=== PATIENT | female | born 1945 | race Caucasian/White ===

== ENCOUNTER 2017-01-12 10:16 | Outpatient (CLI) | payer MEDICARE ==
--- NOTE | 2017-01-13 16:28 | Mammography Report ---
DIGITAL SCREENING MAMMOGRAM: 01/12/2017 CLINICAL INDICATION: A 71-year-old, for screening. COMPARISON: 11/2013, 08/2008, 03/2007. TECHNIQUE: Routine CC and MLO projections were obtained of the breasts. Bilateral laterally exaggera reg craniocaudal views. FINDINGS: The breasts again demonstrate heterogeneously dense fibroglandular parenchyma bilaterally. Coarse and punctate, typically benign calcifications are present. No suspicious masses, clustered mi crocalcifications, or regions of architectural distortion are identified. IMPRESSION: BENIGN FINDINGS. RECOMMENDATION: ROUTINE ANNUAL SCREENING UNLESS OTHERWISE CLINICALLY INDICATED. BIRADS CATEGORY 2-BENIGN FINDINGS. STANDARD QUALIFYING STATEMENTS 1. This examination was reviewed with the aid of Computer-Aided Detection (CAD). 2. A negative or benign imaging report should not delay biopsy if clinically suspicious findings are present. Consider surgical consultation if warranted. More than 5% of cancers are not identified by i maging. 3. Dense breasts may obscure an underlying neoplasm. JOB #: [id number] EXT JOB #:[id number]
== END 2017-01-12 10:17 | disposition home or self-care (01) ==
LOC: DI.S 10:16
PROVIDERS: ATTEND Registered Nurse
DX: Z12.31 Encounter for screening mammogram for malignant neoplasm of breast (principal)
CPT/HCPCS: 77067

== ENCOUNTER 2017-02-19 11:42 | Outpatient (CLI) | payer MEDICARE ==
--- NOTE | 2017-02-19 12:20 | XRAY Report ---
TWO-VIEW CHEST: 02/19/2017 CLINICAL INDICATION: Cough, dyspnea, COPD. COMPARISON: 09/05/2014 FINDINGS: Frontal and lateral views of the chest demonstrate a normal cardiac silhouette. The lungs are hyperinflated. Postoperative changes in the left upper lobe are stable. No new consolidation, effusion, or pneumothorax is evident. IMPRESSION: STABLE COPD AND POSTOPERATIVE CHANGES. NO SIGNIFICANT INTERVAL CHANGE. JOB #: [id number] EXT JOB #:[id number]
== END 2017-02-19 11:43 | disposition home or self-care (01) ==
LOC: DI 11:42
PROVIDERS: ATTEND Registered Nurse
DX: J44.9 Chronic obstructive pulmonary disease, unspecified (principal)
CPT/HCPCS: 71020

== ENCOUNTER 2018-10-10 10:17 | Day surgery (SDC) | payer MEDICARE ==
[2018-10-10] MEDS ORDERED: LACTATED RINGERS 1,000 ML IV ONE (10:37)
[2018-10-10] MEDS ORDERED: MIDAZOLAM 2 MG/2 ML VIAL IVP ONE (10:38)
[2018-10-10] MEDS ORDERED: fentaNYL 100 MCG/2 ML VIAL IVP ONE (10:38)
[2018-10-10 11:39] VITALS: BP 137/81
== END 2018-10-10 10:18 | disposition home or self-care (01) ==
LOC: SDS 10:17
PROVIDERS: ATTEND Surgery
PROC: 0DJD8ZZ Inspection of Lower Intestinal Tract, Via Natural or Artificial Opening Endoscopic (ICD-10-PCS; principal; 2018-10-10 11:30)
DX: Z12.11 Encounter for screening for malignant neoplasm of colon (principal); K64.8 Other hemorrhoids; Z86.010 Personal history of colon polyps; J43.9 Emphysema, unspecified; F17.210 Nicotine dependence, cigarettes, uncomplicated
CPT/HCPCS: G0105; J7120

== ENCOUNTER 2018-11-24 09:21 | Outpatient (CLI) | payer MEDICARE ==
[2018-11-24] MEDS ORDERED: ALBUTEROL NEB 2.5 MG/3 ML INH SCH (10:13)
== END 2018-11-24 09:22 | disposition home or self-care (01) ==
LOC: RT 09:21
PROVIDERS: ATTEND Registered Nurse
DX: J44.9 Chronic obstructive pulmonary disease, unspecified (principal)
CPT/HCPCS: 94060

== ENCOUNTER 2021-07-24 11:17 | Outpatient (CLI) | payer MEDICARE ==
[2021-07-24] MEDS ORDERED: IOVERSOL 320 100 ML VIAL IVP ONE ×2 (11:40→13:35)
[2021-07-24] MEDS ORDERED: IOPAMIDOL-300 50 ML VIAL ONE (11:40)
[2021-07-24] MEDS ORDERED: IOPAMIDOL-300 50 ML VIAL PO ONE (13:36)
--- NOTE | 2021-07-24 16:51 | CT Report ---
PROCEDURE: Abdomen/Pelvis W INDICATIONS: ALTERED BOWEL FUNCTION CONTRAST: IV CONTRAST: Optiray 320 ml: 100 PO CONTRAST: Isovue 300 ml50 TECHNIQUE: After the administration of IV and oral contrast, 5 mm thick sections acquired from the diaphragms to the symphysis. 5 mm thick coronal and sagittal reformats were acquired. For radiation dose reducti on, the following was used: automated exposure control, adjustment of mA and/or kV according to bobby ent size. COMPARISON: None. FINDINGS: Image quality: Excellent. ABDOMEN: Lung bases: Scarring/atelectasis along posterior medial aspect of right lung base is seen. Heart size is normal. Solid organs: There is hepatomegaly, no discrete hepatic lesion is seen. Spleen shows normal size and enhancement. Gallbladder within normal limits. Biliary system is non dilated. Pancreas enhances no rmally. No adrenal nodules. Kidneys demonstrate normal size and enhancement, without hydronephrosis . Peritoneum and bowel: There is no evidence of bowel obstruction. No gastric or small bowel wall thick ening. There is suggestion of wall thickening involving mid to distal ascending colon with narrowing of the lumen. Transverse colon and descending colon wall thickness is normal. No mesenteric fat stran ding. No free fluid of free air. Nodes and vessels: No retroperitoneal or mesenteric adenopathy by size criteria. Aorta and inferior vena cava are normal in size. Mild to moderate atherosclerotic calcifications in the abdominal aort a is seen. Miscellaneous: No ventral hernias. PELVIS: Genitourinary: Bladder wall thickness is normal. Miscellaneous: No inguinal hernias or adenopathy. Bones: No suspicious bony lesions. No vertebral body compression fractures. Grade 1 anterolisthesi s of L4 on L5 is seen with minimal anterolisthesis of L3 on L4. Degenerative endplate changes are see n at L3-4 and L4-5 levels. IMPRESSION: 1. Questionable circumferential wall thickening involving ascending colon concerning for colitis vers us circumferential ascending colon wall mass given patient's history of altered bowel function. GI co rrelation and possible endoscopic correlation is recommended. 2. No other area of abnormal bowel wall thickening. No bowel obstruction. No free fluid of free air. 3. No gross abnormal enlarged lymph nodes are seen in abdomen or pelvis. 4. Hepatomegaly, no discrete hepatic lesion. 5. Right basilar scarring/atelectasis. 6. Degenerative disc disease in lower lumbar spine as above. Reviewed by: Uri Spicer MD on 07/24/2021 4:50 PM PST Approved by: Uri Spicer MD on 07/24/2021 4:50 PM PST Station ID: [id number]
== END 2021-07-24 11:18 | disposition home or self-care (01) ==
LOC: DI 11:17
PROVIDERS: ATTEND Registered Nurse
DX: R19.4 Change in bowel habit (principal); R93.3 Abnormal findings on diagnostic imaging of other parts of digestive tract; R16.0 Hepatomegaly, not elsewhere classified; J98.11 Atelectasis; M43.16 Spondylolisthesis, lumbar region; M51.36 Other intervertebral disc degeneration, lumbar region
CPT/HCPCS: 74177; Q9967

== ENCOUNTER 2021-08-27 11:49 | Observation (INO) | payer MEDICARE ==
[2021-08-27] MEDS ORDERED: LACTATED RINGERS 1,000 ML IV ONE ×2 (12:19→14:02)
--- NOTE | 2021-08-27 12:49 | ANESTHESIA ---
Pre-Anesthesia VS, & Labs - Diagnosis screening - Procedure colonoscopy Vital Signs: Temp Pulse Resp BP Pulse Ox 36.8 C 77 16 149/94 H 98 08/27/21 12:11 08/27/21 12:11 08/27/21 12:11 08/27/21 12:11 08/27/21 12:11 Height: 5 ft 4 in Weight (kg): 54.8 kg Body Mass Index: 20.7 BMI Classification: Healthy weight - NPO >8 hours Last Fluid Intake: am prep - Is Patient ?: No - Lab Results Lab results reviewed: Yes Home Medications and Allergies Home Medications: Ambulatory Orders Alprazolam [Xanax Xr] 0.5 mg PO PRN PRN 08/26/21 Umeclidinium Brm/Vilanterol Tr [Anoro Ellipta 62.5-25 Mcg INH] 1 each IH DAILY 08/26/21 Albuterol 2.5 mg INH Q4H PRN 10/07/18 Sertraline HCl [Zoloft] 200 mg PO DAILY 10/07/18 Alprazolam [Xanax Xr] 0.5 mg PO PRN PRN 08/26/21 Umeclidinium Brm/Vilanterol Tr [Anoro Ellipta 62.5-25 Mcg INH] 1 each IH DAILY 08/26/21 Allergies/Adverse Reactions: Allergies Allergy/AdvReac Type Severity Reaction Status Date / Time No Known Drug Allergies Allergy Verified 10/07/18 14:12 Anes History & Medical History - Anesthetic History Anesthesia Complications: reports: No previous complications Family history of Anesthesia Complications: Denies Family history of Malignant Hyperthermia: Denies - Medical History Cardiovascular: reports: None Pulmonary: reports: COPD Gastrointestinal: reports: None Urinary: reports: None Musculoskeletal: reports: None Endocrine/Autoimmune: reports: None Skin: reports: None Smoking Status: Current some day smoker Psychosocial: reports: No issues indicated History of Cancer?: No - Surgical History Cardiothoracic: reports: Other (thoracentesis at 22years old) Exam General: Alert, Oriented x3, Cooperative Dental: Dentures full Upper, Dentures full Lower Mouth Openin Fingerbreadth Neck Mobility: Normal Mallampati classification: II Thyromental Distance: 4-6 cm Respiratory: Lungs clear, Normal breath sounds, No respiratory distress Cardiovascular: Regular rate Neurological: Normal speech Mental/Cognitive Status: Alert/Oriented X3, Normal for patient Cognitive Status: Within normal limits Plan Anesthesia Type: Total IV Consent for Procedure(s) Verified and Reviewed: Yes Code Status: Attempt Resuscitation ASA classification: 2-Mild systemic disease Is this case an emergency?: No
[2021-08-27] MEDS ORDERED: MIDAZOLAM 2 MG/2 ML VIAL ONE (13:04)
[2021-08-27] MEDS ORDERED: PROPOFOL 200 MG/20 ML VIAL IVP ONE ×2 (13:04→13:54)
[2021-08-27] MEDS ORDERED: GLYCOPYRROLATE 1 MG/5 ML VIAL ONE (13:28)
[2021-08-27] MEDS ORDERED: IPRATROPIUM/ALBUTEROL 3 ML NEB INH PRN (14:43)
[2021-08-27] MEDS ORDERED: ACETAMINOPHEN 325 MG TABLET PO PRN (14:44)
[2021-08-27] MEDS ORDERED: IPRATROPIUM/ALBUTEROL 3 ML NEB INH ONE (14:50)
[2021-08-27] MEDS ORDERED: ACETAMINOPHEN 325 MG TABLET PO ONE (14:58)
[2021-08-27] MEDS: BENZOCAINE/MENTHOL LOZENGE MM ONE ×2 (15:30→18:33)
--- NOTE | 2021-08-27 15:35 | ANESTHESIA POST OP EVALUATION ---
Anesthesia Post Eval - Post Anesthesia Eval Vitals: Last Vital Signs Temp 36.2 C L 08/27/21 13:59 Pulse 76 08/27/21 15:00 Resp 16 08/27/21 15:00 BP 137/81 H 08/27/21 15:00 Pulse Ox 92 08/27/21 15:00 CV Function Including HR & BP: Stable Pain Control: Satisfactory Nausea & Vomiting: Negative Mental Status: Baseline Respiratory Status: Other (Patient has COPD and smoking history, had O2 requirement post procedure and recieved a duoneb. Lungs sound course, able to use IS, wished to go home. I instructed her to return to ER if SOB or chest pain. Coughing subsided. Now on RA sats 90-95.) Hydration Status: Satisfactory Anesthesia Complications: None
[2021-08-27] MEDS ORDERED: SODIUM CHLORIDE FLUSH 0.9% 10 ML SYRINGE IVP PRN (16:43)
[2021-08-27] MEDS ORDERED: ONDANSETRON 4 MG/2 ML VIAL IVP PRN (16:43)
[2021-08-27] MEDS ORDERED: ALBUTEROL NEB 2.5 MG/3 ML INH PRN (16:49)
--- NOTE | 2021-08-27 16:54 | HISTORY & PHYSICAL EXAMINATION ---
Chief Complaint - Chief Complaint Chief Complaint: SOB/hypoxia History of Present Illness - Admitted From Admitted From:: [facility] floor - History Obtained From Records Reviewed: [facility] History obtained from: pt Exam Limitations: no - History of Present Illness HPI Comment/Other: This is a 76-years old female with a past medical history significant noted for COPD, Pulmonary granulomatous disease, left subtotal lobectomy, hx of heavy smoker, and currently cigarette smoker as well, Who just had a colonoscopy. Medical team was called because patient had Significant hypoxia and possible aspiration in the procedure, and patient could not remain good oxygen saturation on room air at the recovery room. Patient had 85% oxygen saturation on room air in the colonoscopy procedure. Patient report she had lot of cough in the procedure. She also present voice hoarseness which pt believe to be caused by her cough. She denies chest pain, fever, chill. Chest x-ray will show minimal left basilar atelectasis and or infiltrate, Hyperinflation chronic interstitial changes. Routine laboratory tests show unremarkable. Given above medical conditions, Patient is admitted in observation unit. Discussed the care goal with the patient, patient hope to have full code. History - Past Medical History Cardiovascular: reports: None Respiratory: reports: COPD Endocrine/Autoimmune: reports: None GI: reports: None : reports: None Psych: reports: Depression, Panic attacks, Claustrophobia Musculoskeletal: reports: None Derm: reports: None MRSA Hx?: No - Past Surgical History Cardiovascular: reports: Other (thoracentesis at 22years old) - Family & Social History Family History: Mother: , Father: Family History Comment/Other: Patient report her father at age 80 from heart disease and dementia. Her mother also at age 80 From dementia. Social History Notes: Patient reported she is still smoking 10 cigarettes/day, she denies alcohol or drug issue Meds/Allgy - Home Medications Home Medications: Ambulatory Orders Medication Instructions Recorded Confirmed Albuterol 2.5 mg INH Q4H PRN 10/07/18 08/26/21 Sertraline HCl [Zoloft] 200 mg PO DAILY 10/07/18 08/26/21 Alprazolam [Xanax Xr] 0.5 mg PO PRN PRN 08/26/21 08/26/21 Umeclidinium Brm/Vilanterol Tr 1 each IH DAILY 08/26/21 08/27/21 [Anoro Ellipta 62.5-25 Mcg INH] - Allergies Allergies/Adverse Reactions: Allergies Allergy/AdvReac Type Severity Reaction Status Date / Time No Known Drug Allergies Allergy Verified 10/07/18 14:12 Review of Systems - Constitutional Constitutional: denies: Fever, Chills - Eyes Eyes: denies: Pain - Ears, Nose & Throat Ears, Nose & Throat: denies: Ear pain - Cardiovascular Cariovascular: denies: Palpitations, Chest pain, Exertional dyspnea, Decr. exercise tolerance - Respiratory Respiratory: reports: Cough, Sputum production. denies: Orthopnea, SOB at rest, SOB with exertion - Gastrointestinal Gastrointestinal: denies: Abdominal pain, Nausea, Vomiting - Genitourinary Genitourinary: denies: Dysuria - Neurological Neurological: reports: Headache, Other. denies: General weakness, Focal weakness, Dizziness, Numbness, Abnormal gait, Seizures, Incoordination, Slurred speech Exam - Vital Signs Vital Signs: Vital Signs x48h Temp Pulse Resp BP Pulse Ox 08/27/21 16:27 37.6 C 78 20 142/85 H 92 08/27/21 16:18 78 18 164/80 H 94 08/27/21 15:59 75 18 168/86 H 85 L 08/27/21 15:42 75 24 151/89 H 89 L 08/27/21 15:20 36.5 C 78 16 140/84 H 90 L 08/27/21 15:00 76 16 137/81 H 92 08/27/21 14:15 74 22 128/81 H 94 08/27/21 13:59 36.2 C L 76 22 123/73 92 08/27/21 12:11 36.8 C 77 16 149/94 H 98 - Physical Exam General Appearance: positive: No acute distress, Alert. negative: Lethargic Eyes Bilateral: positive: Normal inspection, PERRL, No lid inflammation ENT: positive: ENT inspection nml, Pharyngeal erythema. negative: Purulent nasal drainage Neck: positive: Nml inspection, Trachea midline. negative: Tracheal deviation Respiratory: positive: Chest non-tender, No respiratory distress, Other (Diminished lung sounds at the right lung). negative: Wheezes Cardiovascular: positive: Regular rate & rhythm, No murmur. negative: Tachycardia, Bradycardia, Systolic murmur Peripheral Pulses: positive: 2+ Abdomen: positive: Non-tender, Nml bowel sounds, No distention. negative: Tenderness Back: positive: Nml inspection Skin: positive: Color nml, Warm, Dry. negative: Cyanosis Extremities: positive: Non-tender, Full ROM, Nml appearance Neurologic/Psychiatric: positive: Oriented x3, Motor nml, Sensation nml. negative: Weakness, Sensory loss, Facial droop, Slurred/abnml speech, Depressed mood/affect Sepsis Event Note (H) - Evaluation Current Stage of Sepsis: Ruled out Conclusion/Plan - Problem List (1) Hypoxia Conclusion/Plan: Patient had 85% oxygen saturation on room air in the procedure. Patient has history of COPD, heavy smoke, and patient under procedure with anesthesia medication. Now patient had a 95% Oxygen saturation on room air. Anesthesiologist concern patient might have possible aspiration, difficult to remain normal O2 saturation in the recovery room and patient did have strong cough as well. plan: order CXR, start with with Albuterol, DuoNeb, Pulmicort, supplemental oxygen as needed, order lab monitor. (2) COPD (chronic obstructive pulmonary disease) Conclusion/Plan: Patient had history of COPD, heavy smoking in the past, still current smoker as well. pt took inhaler at home but pt did not have home O2. Since patient has no acute respiratory distress, we will start with albuterol, DuoNeb, Pulmicort. Hold steroid. Supplemental oxygen as needed (3) Current smoker Conclusion/Plan: Patient reported she is taking 10 cigarettes/day. She asked for nicotine patch. Discussed with patient for cessation of smoking, She declined to do that. (4) Cough Conclusion/Plan: Patient reported she had very strong cough after the procedure with voice hoarseness. Patient had history of COPD and current smoker, we will order chest x-ray to rule out aspiration, order sputum culture, order tessalon and Robitussin PRN to control her bronchi spasm and cough. - Lab Results Lab results reviewed: Yes Ian Bones: 08/28/21 04:54 08/28/21 04:54 Core Measures - Anticipated LOS I expect patient to be DC'd or transferred within 96 hours.: Yes - DVT/VTE - Prophylaxis VTE/DVT Device ordered at admit?: Yes VTE/DVT Prophylaxis med ordered at admit?: Yes
[2021-08-27 17:07] LABS: BASOPHILS % (AUTO) 0.2 %; EOSINOPHILS % (AUTO) 0.2 %; HCT - HEMATOCRIT 40.2 % (37.0-47.0); HGB - HEMOGLOBIN 13.4 g/dL (12.0-16.0); LYMPHOCYTES % (AUTO) 9.5 %; MEAN CORPUSCULAR HEMOGLOBIN 33.3 pg (27.0-31.0); MEAN CORPUSCULAR HGB CONC 33.3 g/dL (32.0-36.0); MEAN CORPUSCULAR VOLUME 99.8 fL (81.0-99.0); MEAN PLATELET VOLUME 8.8 fL (7.9-10.8); MONOCYTES # (AUTO) 0.4 10^3/uL (0.0-1.0); MONOCYTES % (AUTO) 3.5 %; NEUTROPHILS # (AUTO) 9.2 10^3/uL (1.5-6.6); NEUTROPHILS % (AUTO) 86.3 %; PLT - PLATELET COUNT 128 10^3/uL (130-450); RED BLOOD COUNT 4.03 10^6/uL (4.20-5.40); RED CELL DISTRIBUTION WIDTH 14.2 % (12.0-15.0); WHITE BLOOD COUNT 10.6 x10^3/uL (4.8-10.8)
[2021-08-27 17:20] LABS: ALBUMIN 4.5 g/dL (3.2-5.5); ALBUMIN/GLOBULIN RATIO 1.9 (1.0-2.2); BILIRUBIN,TOTAL 0.6 mg/dL (0.2-1.0); CALCIUM 9.2 mg/dL (8.5-10.3); POTASSIUM 4.2 mmol/L (3.5-5.0); TOTAL PROTEIN 6.9 g/dL (6.7-8.2)
[2021-08-27] MEDS ORDERED: ALPRAZolam 0.25 MG TABLET PO PRN (17:20)
--- NOTE | 2021-08-27 17:36 | XRAY Report ---
PROCEDURE: Chest 1 View X-Ray INDICATIONS: SOB TECHNIQUE: One view of the chest was acquired. COMPARISON: 02/19/2017 FINDINGS: Surgical changes and devices: None. Lungs and pleura: Hyperinflation chronic interstitial changes noted. Surgical suture line noted in th e left upper lobe with the thoracotomy changes. Minimal blunting of the left costophrenic angle. Othe rwise, both lungs and pleural spaces are clear. Mediastinum: Mediastinal contours appear normal. Heart size is normal. Bones and chest wall: No suspicious bony lesions. Overlying soft tissues appear unremarkable. IMPRESSION: Minimal left basilar atelectasis and/or infiltrate Left upper lobe thoracotomy and subtotal lobectomy Hyperinflation chronic interstitial changes Reviewed by: Yon Márquez MD on 08/27/2021 4:35 PM AKST Approved by: Yon Márquez MD on 08/27/2021 4:35 PM AKST Station ID: [id number]
[2021-08-27] MEDS ORDERED: BENZOCAINE/MENTHOL LOZENGE MM PRN (17:46)
[2021-08-27] MEDS ORDERED: TEMAZEPAM 15 MG CAPSULE PO PRN (18:27)
[2021-08-27] MEDS: SODIUM CHLORIDE FLUSH 0.9% 10 ML SYRINGE IVP SCH (18:33)
[2021-08-27] MEDS ORDERED: NICOTINE 14 MG PATCH TOP SCH (19:00)
[2021-08-27] MEDS ORDERED: BENZONATATE 100 MG CAPSULE PO PRN (19:02)
[2021-08-27] MEDS: BUDESONIDE 0.5 MG/2 ML NEB INH SCH (20:01)
[2021-08-27] MEDS: IPRATROPIUM/ALBUTEROL 3 ML NEB INH SCH (20:01)
[2021-08-27] MEDS ORDERED: methylPREDNISolone SUCCINATE 40 MG/ML VIAL IVP SCH (22:00)
[2021-08-27] MEDS ORDERED: METOPROLOL 5 MG/5 ML VIAL IVP STA (22:20)
[2021-08-28] MEDS: SODIUM CHLORIDE FLUSH 0.9% 10 ML SYRINGE IVP SCH ×2 (00:19→08:39)
[2021-08-28] MEDS: IPRATROPIUM/ALBUTEROL 3 ML NEB INH SCH (03:05)
[2021-08-28 05:20] LABS: BASOPHILS % (AUTO) 0.2 %; EOSINOPHILS % (AUTO) 0.1 %; HCT - HEMATOCRIT 37.1 % (37.0-47.0); HGB - HEMOGLOBIN 12.4 g/dL (12.0-16.0); LYMPHOCYTES # (AUTO) 1.7 10^3/uL (1.5-3.5); LYMPHOCYTES % (AUTO) 13.6 %; MEAN CORPUSCULAR HEMOGLOBIN 33.2 pg (27.0-31.0); MEAN CORPUSCULAR HGB CONC 33.4 g/dL (32.0-36.0); MEAN CORPUSCULAR VOLUME 99.2 fL (81.0-99.0); MONOCYTES # (AUTO) 0.4 10^3/uL (0.0-1.0); MONOCYTES % (AUTO) 3.6 %; NEUTROPHILS % (AUTO) 82.2 %; PLT - PLATELET COUNT 120 10^3/uL (130-450); RED BLOOD COUNT 3.74 10^6/uL (4.20-5.40); RED CELL DISTRIBUTION WIDTH 14.2 % (12.0-15.0); WHITE BLOOD COUNT 12.1 x10^3/uL (4.8-10.8)
[2021-08-28 05:29] LABS: ALBUMIN 3.8 g/dL (3.2-5.5); ALBUMIN/GLOBULIN RATIO 1.5 (1.0-2.2); BILIRUBIN,TOTAL 0.8 mg/dL (0.2-1.0); CALCIUM 8.9 mg/dL (8.5-10.3); POTASSIUM 4.3 mmol/L (3.5-5.0); TOTAL PROTEIN 6.4 g/dL (6.7-8.2)
[2021-08-28] MEDS ORDERED: LEVALBUTEROL 1.25 MG/3 ML NEB INH PRN (06:00)
[2021-08-28] MEDS: BUDESONIDE 0.5 MG/2 ML NEB INH SCH (07:23)
[2021-08-28] MEDS ORDERED: guaiFENesin 100 MG/5 ML UDC PO PRN (07:44)
[2021-08-28] MEDS ORDERED: guaiFENesin 100 MG/5 ML UDC PO ONE (08:00)
--- NOTE | 2021-08-28 08:45 | XRAY Report ---
PROCEDURE: Chest 1 View X-Ray INDICATIONS: SOB TECHNIQUE: One view of the chest was acquired. COMPARISON: 08/27/2021. FINDINGS: Surgical changes and devices: Postsurgical changes are again seen in left upper lung field.. Lungs and pleura: No focal infiltrate. Blunting of left costophrenic angle is again seen suggestive o f chronic pleural thickening/trace effusion. No pneumothorax. Mediastinum: Mediastinal contours appear normal. Heart size is normal. Bones and chest wall: No suspicious bony lesions. Overlying soft tissues appear unremarkable. IMPRESSION: Trace left pleural effusion versus thickening. No focal infiltrate or pneumothorax. Stable postsurgic al changes in left upper lung field. Reviewed by: Uri Spicer MD on 08/28/2021 8:44 AM PST Approved by: Uri Spicer MD on 08/28/2021 8:44 AM PST Station ID: [id number]
[2021-08-28] MEDS ORDERED: IPRATROPIUM/ALBUTEROL 3 ML NEB INH SCH (09:00)
[2021-08-28] MEDS ORDERED: guaiFENesin 600 MG TABLET PO SCH (09:00)
[2021-08-28] MEDS ORDERED: ENOXAPARIN 40 MG/0.4 ML SYRINGE SUBQ SCH (09:00)
[2021-08-28] MEDS ORDERED: SERTRALINE 50 MG TABLET PO SCH (09:00)
[2021-08-28] MEDS ORDERED: BENZOCAINE/MENTHOL LOZENGE MM ONE (10:20)
[2021-08-28] MEDS ORDERED: IOVERSOL 320 100 ML VIAL IVP ONE ×2 (10:39→11:26)
--- NOTE | 2021-08-28 11:41 | CT Report ---
PROCEDURE: SOFT TISSUE NECK W INDICATIONS: Throat pain, difficulty speaking and swallowing CONTRAST: IV CONTRAST: Optiray 320 ml: 100 PO CONTRAST: *NO PO CONTRAST TECHNIQUE: After the administration of intravenous contrast, 3.0 mm axial sections acquired from the sella to th e aortic arch. Additional oblique axial 3.0 mm sections acquired through the pharynx. 3 mm thick co kaleigh reformats were generated. For radiation dose reduction, the following was used: automated exp osure control, adjustment of mA and/or kV according to patient size. COMPARISON: None. FINDINGS: Image quality: Excellent. Lymph nodes: No enlarged lymph nodes seen throughout the neck. Vessels: Visualized vasculature appears patent. Neck spaces: The oropharynx, nasopharynx, and pharynx demonstrate no mucosal lesions. The vocal cor ds, false vocal cords, pyriform sinuses, epiglottis, vallecula, and tongue base all appear normal. E xtramucosal spaces appear unremarkable. Glands: The parotid and submandibular glands appear normal. The thyroid is normal in size and there are no incidental findings. Miscellaneous: Visualized brain and orbits appear normal. Lung apices appear clear. Superficial so ft tissues appear normal. Bones: No suspicious bony lesions. Visualized sinuses and mastoids appear unremarkable. IMPRESSION: No acute or otherwise significant finding. CLINICAL RECOMMENDATION STATEMENTS: In patients <35 years with an ITN detected on CT, MRI, or extrathyroidal ultrasound, the Committee re commends further evaluation with dedicated thyroid ultrasound if the nodule is "e1 cm and has no susp icious imaging features, and if the patient has normal life expectancy. In patients "e35 years with an ITN detected on CT, MRI, or extrathyroidal ultrasound, the Committee r ecommends further evaluation with dedicated thyroid ultrasound if the nodule is "e1.5 cm and has no s uspicious imaging features, and if the patient has normal life expectancy. (ACR, 2014) Reviewed by: Yuniel Rueda MD on 08/28/2021 11:39 AM PST Approved by: Yuniel Rueda MD on 08/28/2021 11:39 AM PST Station ID: [id number]
[2021-08-28 12:39] VITALS: BP 103/64
--- NOTE | 2021-08-28 13:05 | Discharge Plan ---
Discharge Plan Problem Reviewed?: Yes Disposition: Home, Self Care Condition: Stable Prescriptions: Benzocaine/Menth/Cetyl [Cepacol] 1 each MM QID PRN #10 lozenge PRN Reason: sore throat Benzonatate [Tessalon] 100 mg PO TID PRN #10 cap PRN Reason: Cough Diet: Regular Activity Restrictions: Activity as Tolerated Shower Restrictions: No (fall precaution) Instruction Topics: Benzonatate capsules, Benzocaine Oral Lozenges Health Concerns: cough, sore throat, voice hoarseness Plan of Treatment: You report you feel better. Respiratory therapist did desat study for pt, you have no respiratory distress. CT of your neck reveal no acute finding. You are prescribed meds for your cough, score throat as needed and Keep hydration, reduce voice, take rest to help recovery for your voice hoarseness. You may resume your home meds. Care Goals: Stabilization and improvement/ resolved of your medical issues Assessment: Discussed the care plan with you, answered your questions, you understood Additional Instructions or Follow Up instructions: You may follow-up with your PCP in 1 to 2 weeks. Should your symptoms return or worse, you may present to the ER or call 911 for help No Smoking: If you smoke, Please STOP! Call for help. Follow-up with: Elin Quijano ARNP [Primary Care Provider] -
--- NOTE | 2021-08-28 13:18 | DISCHARGE SUMMARY ---
Discharge Summary Admit Date: 08/27/21 Discharge Date: 08/28/21 Discharging Provider: Magdi Arredondo Primary Care Provider: Elin Garber Condition at Discharge: Stable Discharge Disposition: 01 Home, Self Care Discharge Facility Name: home - DIAGNOSES Discharge Diagnoses with Status of Each Condition: (1) Hypoxia resolved. pt had O2 desat study by RT. pt had 92-95% O2 sat on room air at rest and exertion. pt has no respiratory distress. (2) COPD (chronic obstructive pulmonary disease) stable, resume home meds (3) Current smoker strongly advise pt quit smoking. (4) Cough controlled. pt is prescribed Tessalon PRN (5)hoarseness improved. she ate 75% of her meal. CT of neck has no acute finding. pt is prescribed Cepacol PRN - HPI History of Present Illness: This is a 76-years old female with a past medical history significant noted for COPD, Pulmonary granulomatous disease, left subtotal lobectomy, hx of heavy smoker, and currently cigarette smoker as well, Who just had a colonoscopy. Medical team was called because patient had Significant hypoxia and possible aspiration in the procedure, and patient could not remain good oxygen saturation on room air at the recovery room. Patient had 85% oxygen saturation on room air in the colonoscopy procedure. Patient report she had lot of cough in the procedure. She also present voice hoarseness which pt believe to be caused by her cough. She denies chest pain, fever, chill. Chest x-ray will show minimal left basilar atelectasis and or infiltrate, Hyperinflation chronic interstitial changes. Routine laboratory tests show unremarkable. Given above medical conditions, Patient is admitted in observation unit. Discussed the care goal with the patient, patient hope to have full code. - ALLERGIES Allergies/Adverse Reactions: Allergies Allergy/AdvReac Type Severity Reaction Status Date / Time No Known Drug Allergies Allergy Verified 10/07/18 14:12 - MEDICATIONS Home Medications: Ambulatory Orders Medication Instructions Recorded Confirmed Albuterol 2.5 mg INH Q4H PRN 10/07/18 08/26/21 Sertraline HCl [Zoloft] 200 mg PO DAILY 10/07/18 08/26/21 Alprazolam [Xanax Xr] 0.5 mg PO PRN PRN 08/26/21 08/26/21 Umeclidinium Brm/Vilanterol Tr 1 each IH DAILY 08/26/21 08/27/21 [Anoro Ellipta 62.5-25 Mcg INH] Benzocaine/Menth/Cetyl [Cepacol] 1 each MM QID PRN #10 lozenge 08/28/21 Benzonatate [Tessalon] 100 mg PO TID PRN #10 cap 08/28/21 - PHYSICAL EXAM AT DISCHARGE General Appearance: positive: No acute distress, Alert. negative: Lethargic Eyes Bilateral: positive: Normal inspection, No lid inflammation ENT: positive: ENT inspection nml, No signs of dehydration. negative: Purulent nasal drainage Neck: positive: Nml inspection, Thyroid nml, Trachea midline. negative: Thyromegaly, Lymphadenopathy (R), Lymphadenopathy (L), Stiff neck, Swelling/bruising, Tracheal deviation Respiratory: positive: Chest non-tender, No respiratory distress. negative: Wheezes Cardiovascular: positive: Regular rate & rhythm, No murmur. negative: Tachycardia, Bradycardia, Systolic murmur Peripheral Pulses: positive: 2+ Abdomen: positive: Non-tender, Nml bowel sounds, No distention. negative: Tenderness Back: positive: Nml inspection Skin: positive: Color nml, Warm, Dry. negative: Cyanosis Extremities: positive: Non-tender, Full ROM, Nml appearance Neurologic/Psychiatric: positive: Oriented x3, Motor nml, Sensation nml, Mood/affect nml. negative: Weakness, Sensory loss, Facial droop, Slurred/abnml speech, Depressed mood/affect - LABS Result Diagrams: 08/28/21 04:54 08/28/21 04:54 - SEPSIS Current Stage of Sepsis: Ruled out - FOLLOW UP Follow Up: You report you feel better. Respiratory therapist did desat study for pt, you have no respiratory distress. CT of your neck reveal no acute finding. You are prescribed meds for your cough, score throat as needed and Keep hydration, reduce voice, take rest to help recovery for your voice hoarseness. You may resume your home meds. You may follow-up with your PCP in 1 to 2 weeks. Should your symptoms return or worse, you may present to the ER or call 911 for help - TIME SPENT Time Spent in Discharge (Minutes): 30
== END 2021-08-28 14:40 | disposition home or self-care (01) ==
LOC: SDS 11:49 → MS2 16:43 → SDS 20:43 → MS2 20:44
PROVIDERS: ADMIT Nurse Practitioner Gerontology; ATTEND Nurse Practitioner Gerontology
PROC: 0DJD8ZZ Inspection of Lower Intestinal Tract, Via Natural or Artificial Opening Endoscopic (ICD-10-PCS; principal; 2021-08-27 13:15)
DX: R93.5 Abnormal findings on diagnostic imaging of other abdominal regions, including retroperitoneum (principal); K62.5 Hemorrhage of anus and rectum; R19.4 Change in bowel habit; K64.8 Other hemorrhoids; R09.02 Hypoxemia; J44.9 Chronic obstructive pulmonary disease, unspecified; F17.210 Nicotine dependence, cigarettes, uncomplicated; R05.9 Cough, unspecified; R49.0 Dysphonia; R06.02 Shortness of breath
CPT/HCPCS: 36415; 45378; 70491; 71045; 80053; 83605; 85025; 87070; 87205; 94640; 94761; 96372; 96374; A9270; G0378; J1650; J7120; J7626; Q9967

== ENCOUNTER 2022-03-31 11:15 | Outpatient (CLI) | payer MEDICARE ==
--- NOTE | 2022-03-31 14:31 | XRAY Report ---
PROCEDURE: Chest 2 View X-Ray INDICATIONS: PRODUCTIVE COUGH TECHNIQUE: 2 view(s) of the chest. COMPARISON: X-ray chest, 08/27/2021, 02/19/2017. FINDINGS: Surgical changes and devices: None. Lungs and pleura: There are postsurgical changes in the left upper lobe. Lungs are hyperinflated. No focal infiltrate or consolidation. No pleural effusions or pneumothorax. Mediastinum: Mediastinal contours are normal. Heart size is normal. Bones and chest wall: Old left second, third and fourth rib fractures noted. There is surgical resect ion of the left fifth rib. No suspicious bony abnormalities. Soft tissues appear unremarkable. IMPRESSION: 1. No acute cardiopulmonary disease. 2. Hyperinflation consistent with COPD. Reviewed by: Rufino Sullivan MD on 03/31/2022 2:30 PM PDT Approved by: Rufino Sullivan MD on 03/31/2022 2:30 PM PDT Station ID: [id number]
[2022-03-31 14:44] LABS: BASOPHILS % (AUTO) 0.4 %; EOSINOPHILS # (AUTO) 0.1 10^3/uL (0.0-0.7); EOSINOPHILS % (AUTO) 2.2 %; HCT - HEMATOCRIT 40.2 % (37.0-47.0); HGB - HEMOGLOBIN 13.6 g/dL (12.0-16.0); LYMPHOCYTES # (AUTO) 1.7 10^3/uL (1.5-3.5); LYMPHOCYTES % (AUTO) 31.6 %; MEAN CORPUSCULAR HEMOGLOBIN 33.3 pg (27.0-31.0); MEAN CORPUSCULAR HGB CONC 33.8 g/dL (32.0-36.0); MEAN CORPUSCULAR VOLUME 98.5 fL (81.0-99.0); MONOCYTES # (AUTO) 0.5 10^3/uL (0.0-1.0); MONOCYTES % (AUTO) 8.6 %; NEUTROPHILS # (AUTO) 3.1 10^3/uL (1.5-6.6); NEUTROPHILS % (AUTO) 56.7 %; PLT - PLATELET COUNT 130 10^3/uL (130-450); RED BLOOD COUNT 4.08 10^6/uL (4.20-5.40); RED CELL DISTRIBUTION WIDTH 13.6 % (12.0-15.0); WHITE BLOOD COUNT 5.5 x10^3/uL (4.8-10.8)
[2022-03-31 15:24] LABS: ALBUMIN 4.4 g/dL (3.2-5.5); ALBUMIN/GLOBULIN RATIO 1.3 (1.0-2.2); BILIRUBIN,TOTAL 0.8 mg/dL (0.2-1.0); CALCIUM 9.4 mg/dL (8.5-10.3); CREATININE 0.9 mg/dL (0.4-1.0); MAGNESIUM 2.4 mg/dL (1.7-2.8); POTASSIUM 4.4 mmol/L (3.5-5.0); TOTAL PROTEIN 7.8 g/dL (6.7-8.2)
[2022-03-31 15:34] LABS: THYROID STIMULATING HORMONE 2.41 uIU/mL (0.34-5.60)
== END 2022-03-31 11:16 | disposition home or self-care (01) ==
LOC: DI.S 11:15
PROVIDERS: ATTEND Physician Assistant Medical
DX: R05.8 Other specified cough (principal); R07.89 Other chest pain; R42 Dizziness and giddiness; R11.2 Nausea with vomiting, unspecified
CPT/HCPCS: 36415; 80053; 83735; 84443; 84484; 85025; 85379

== ENCOUNTER 2022-04-21 16:47 | Outpatient (CLI) | payer MEDICARE ==
[2022-04-21] MEDS ORDERED: GADOBUTROL 7.5 MMOL/7.5 ML VIAL ONE (16:58)
[2022-04-21] MEDS ORDERED: GADOBUTROL 7.5 MMOL/7.5 ML VIAL IVP ONE (17:11)
--- NOTE | 2022-04-21 18:19 | MRI Report ---
PROCEDURE: BRAIN W/WO INDICATIONS: ATAXIA CONTRAST: 5.4 TECHNIQUE: Noncontrast axial T1 spin echo, axial T2 fast spin echo, sagittal and axial FLAIR, coronal T2 fast sp in echo, axial gradient echo, axial diffusion and ADC through the brain. After the administration of contrast, axial and coronal T1 spin echo with fat saturation through the brain. COMPARISON: None. FINDINGS: Image quality: Excellent. CSF spaces: Basal cisterns are patent. No extra-axial fluid collections. Ventricles are normal in size and shape. Brain: No midline shift. No intracranial bleeds or masses. No abnormal intracranial enhancement. There is cerebral volume loss for age. There is periventricular white matter chronic small vessel is chemic change. The brainstem appears normal. Diffusion-weighted images demonstrate no acute ischemi c insults. No chronic ischemic insults. Normal intravascular flow voids are present. Skull and face: Calvarial marrow is normal in signal. Orbits appear normal. Incidental note is ma de of bilateral lens replacements. Sinuses: Sinuses and mastoids appear clear. IMPRESSION: Unremarkable brain MRI for age, without a cause of the patient's presenting history iden tified. No findings of acute or subacute infarction are seen. No masses or abnormal enhancement can be seen. Reviewed by: Domenic Watt MD on 04/21/2022 5:18 PM [facility] Approved by: Domenic Watt MD on 04/21/2022 5:18 PM AKE[facility]ELINA Station ID: [id number]
== END 2022-04-21 16:48 | disposition home or self-care (01) ==
LOC: DI 16:47
PROVIDERS: ATTEND Registered Nurse
DX: R27.0 Ataxia, unspecified (principal)
CPT/HCPCS: 70553; A9585

== ENCOUNTER 2023-06-02 14:23 | Outpatient (CLI) | payer MEDICARE ==
--- NOTE | 2023-06-03 10:21 | Mammography Report ---
BILATERAL DIGITAL SCREENING MAMMOGRAM 3D/2D WITH EXAGGERATED CC: 06/02/2023 CLINICAL: Routine screening. Comparison is made to exams dated: 01/12/2017 mammogram and 12/08/2013 mammogram - [facility]. Both breasts are heterogeneously dense, which may obscure small masses (category c / 51-75% glandular tissue). No significant masses, calcifications, or other findings are seen in either breast. There has been no significant interval change. IMPRESSION: NEGATIVE There is no mammographic evidence of malignancy. A 1 year screening mammogram is recommended. Based on the Tyrer Cuzick model (a risk assessment model) the patients lifetime risk is 3.7% and her 10 year risk is 3.7%. According to the ACR, ACS, and NCCN guidelines, an annual breast MRI exam rivas g with mammogram is recommended if the patients lifetime risk is 20% or greater. This exam was interpreted at Station ID: [id number]. NOTE: For mammograms, a report in lay terms will be sent to the patient. Approximately 15% of breast malignancies will not be visualized mammographically. In the management of a palpable breast mass, a negative mammogram must not discourage biopsy of a clinically suspicious lesion. Electronically Signed By: Chiqui Rice M.D., PH.D eb/penrad:06/03/2023 00:42:17 letter sent: No_Letter ACR BI-RADS Category 1: Negative 3341F PARENCHYMAL PATTERN: (D) - The breast(s) demonstrate(s) heterogeneously dense fibroglandular june sidhu. BI-RADS CATEGORY: (1) - 1 Mammogram [id number] 1 year screening LATERALITY: (B)
== END 2023-06-02 14:24 | disposition home or self-care (01) ==
LOC: DI 14:23
PROVIDERS: ATTEND Registered Nurse
DX: Z12.31 Encounter for screening mammogram for malignant neoplasm of breast (principal); R92.333 Mammographic heterogeneous density, bilateral breasts

== ENCOUNTER 2023-06-02 14:24 | Outpatient (CLI) | payer MEDICARE ==
--- NOTE | 2023-06-02 15:56 | DEXA Report ---
PROCEDURE: Dexa Spine and/or Hip INDICATIONS: POST MENOPAUSAL TECHNIQUE: Dual energy x-ray absorptiometry (DXA) was performed on a [employer] System. Regions measur ed are the AP Spine, femoral neck, and if needed forearm. COMPARISON: None FINDINGS: Lumbar Spine: Bone Mineral Density 0.949 g/cm/cm,T score -1.9. Left Femoral Neck: Bone Mineral Density 0.857 g/cm/cm, T score -1.3. Left Hip: Bone Mineral Density 0.957 g/cm/cm,T score -0.4. (T score greater or equal to -1.0: NORMAL) (T score from -1.1 to -2.4: OSTEOPENIA) (T score less than or equal to -2.5 to: OSTEOPOROSIS) Impression: By WHO criteria, this patient has low bone density (osteopenia). Patients with diagnosis of osteoporosis or osteopenia should have regular bone mineral density assess ment. For those eligible for Medicare, routine testing is allowed once every 2 years. Testing frequ ency can be increased for patients who have rapidly progressing disease or for those who are receivin g medical therapy to restore bone mass. Reviewed by: Nicolas Weaver MD on 06/02/2023 3:55 PM PST Approved by: Nicolas Weaver MD on 06/02/2023 3:55 PM PST Station ID: [id number]
== END 2023-06-02 14:25 | disposition home or self-care (01) ==
LOC: DI 14:24
PROVIDERS: ATTEND Registered Nurse
DX: Z78.0 Asymptomatic menopausal state (principal); M85.89 Other specified disorders of bone density and structure, multiple sites

== ENCOUNTER 2023-06-08 19:24 | Outpatient (CLI) | payer MEDICARE | END 2023-06-08 19:25 | disposition critical access hospital (66) | LOC: EMS 19:24 | DX: I95.1 Orthostatic hypotension (principal) | CPT/HCPCS: A0425; A0427 ==

== ENCOUNTER 2023-06-08 19:54 | Emergency (ER) | payer MEDICARE ==
--- NOTE | 2023-06-08 20:44 | ED Physician Documentation ---
History of Present Illness - Stated complaint Stated Complaint: WEAKNESS, NEAR SYNCOPE - Chief complaint Chief Complaint: Cardiac - History obtained from History obtained from: Patient - Additonal information Additional information: BIBA HPI from patient. Patient was walking at home this evening at approximately 6:30 PM when she experienced sudden onset of difficulty ambulating. She says "my right leg wouldn't work", but in her descriptions it is unclear if this was due to weakness or ataxia. She did not notice any other extremity problems including RUE. Denies difficulty speaking, mentating. Due to the RLE issue, she was leaning to one side while trying to ambulate and thus a family member came to her aid. He helped her to the couch; as he did so, she felt lightheaded and like she might lose consciousness. She did not fall and there was no LOC. The family member is in ED at bedside; he did not note any facial droop nor slurred speech. By the time of this HPI, her symptoms have resolved. EMS notes FSBS 101. They also note 140/palp BP with sitting, 130/palp with standing. Review of Systems Eyes: denies: Loss of vision, Decreased vision Cardiac: reports: Reviewed and negative Respiratory: reports: Reviewed and negative GI: reports: Reviewed and negative Neurologic: reports: Focal weakness, Near syncope. denies: Generalized weakness, Numbness, Difficulty speaking, Syncope, Confused, Altered mental status, Headache, LOC PD PAST MEDICAL HISTORY - Past Medical History Past Medical History: Yes Cardiovascular: None Respiratory: COPD Endocrine/Autoimmune: None GI: None : None Psych: Depression, Panic attacks, Claustrophobia Musculoskeletal: None Derm: None - Past Surgical History Past Surgical History: Yes Cardiovascular: Other - Present Medications Home Medications: Ambulatory Orders Medication Instructions Recorded Confirmed Albuterol 2.5 mg INH Q4H PRN 10/07/18 08/26/21 Sertraline HCl [Zoloft] 200 mg PO DAILY 10/07/18 08/26/21 Alprazolam [Xanax Xr] 0.5 mg PO PRN PRN 08/26/21 08/26/21 Umeclidinium Brm/Vilanterol Tr 1 each IH DAILY 08/26/21 08/27/21 [Anoro Ellipta 62.5-25 Mcg INH] Benzocaine/Menth/Cetyl [Cepacol] 1 each MM QID PRN #10 lozenge 08/28/21 Benzonatate [Tessalon] 100 mg PO TID PRN #10 cap 08/28/21 - Allergies Allergies/Adverse Reactions: Allergies Allergy/AdvReac Type Severity Reaction Status Date / Time No Known Drug Allergies Allergy Verified 10/07/18 14:12 - Social History Does the pt smoke?: Yes Smoking Status: Current every day smoker Does the pt drink ETOH?: Yes Does the pt have substance abuse?: No - Immunizations Immunizations are current?: Yes PD ED PE NORMAL - Vitals Vital signs reviewed: Yes - General General: Alert and oriented X 3, No acute distress, Well developed/nourished - HEENT HEENT: PERRL, EOMI - Cardiac Cardiac: RRR, No murmur - Respiratory Respiratory: No respiratory distress, Clear bilaterally - Abdomen Abdomen: Soft, Non tender - Neuro Neuro: Alert and oriented X 3, chart snatcher 2-12 intact, No motor deficit (full strength (5/5) bilateral graphics manager, bilateral dorsi/plantarflexion, bilateral ilipsoas (leg raise)), No sensory deficit (LTS intact bilaterally on face, BUE, BLE), Normal speech, Other (normal bilateral heel/tapia and finger/nose) Eye Opening: Spontaneous Motor: Obeys Commands Verbal: Oriented GCS Score: 15 Results - Vitals Vitals: Oxygen O2 Source Room air - EKG (time done) No standard instances EKG releavant findings:: EKG personally interpreted by author of this note. Relevant findings are: Rate: Rate (enter#) (70) Rhythm: NSR [place]: Normal Intervals: Normal CA QRS: Normal Ischemia: Normal ST segments, Q waves (II, III, aVF) - Labs Labs: Laboratory Tests 06/08/23 06/08/23 21:10 21:10 WBC 5.6 RBC 3.75 L Hgb 12.9 Hct 36.8 L MCV 98.1 MCH 34.4 H MCHC 35.1 RDW 13.7 Plt Count 122 L MPV 9.0 Neut # (Auto) 3.0 Lymph # (Auto) 2.0 [place] # (Auto) 0.4 Eos # (Auto) 0.2 Baso # (Auto) 0.0 Absolute Nucleated RBC 0.00 Nucleated RBC % 0.0 Sodium 138 Potassium 4.1 Chloride 107 Carbon Dioxide 25 Anion Gap 6.0 BUN 14 Creatinine 0.9 Estimated GFR (MDRD) 61 L Glucose 115 H Calcium 9.2 Total Bilirubin 0.3 AST 27 ALT 17 Alkaline Phosphatase 86 Troponin I High Sens 8.1 Total Protein 6.1 L Albumin 4.1 Globulin 2.0 L Albumin/Globulin Ratio 2.1 Lipase 68 - Rads (name of study) CTA head/neck Relevant Findings:: Prelim report reviewed, See rad report cxr Relevant Findings:: Prelim report reviewed, See rad report PD Medical Decision Making - ED course Complexity details: reviewed results, re-evaluated patient, considered differential, d/w patient ED course: Presents with near-syncope immediately preceded by RLE weakness vs ataxia. Neurologic (CVA/TIA) w/u undertaken as well as cardiac testing (EKG, hs-cTn). No concerning findings on CBC, ER abdominal panel. Normal hs-cTn. No acute EKG findings (inferior Q waves but no ST elevations/depressions). CTA head/neck demonstrates bilateral ICA 50% stenoses but no other concerning nor diagnostic findings including no LVO. Etiology of symptoms is not apparent at this time. Would consider TIA given the c/o RLE problem although she also describes near-syncope; the RLE weakness/ataxia could have been secondary to low-flow state (hypotension with typical differential diagnosis for near-syncope). Given resolution of symptoms without intervention and lack of concerning findings on tonight's tests and physical exam, safe and appropriate to d/c home. Results reviewed with patient, return precautions discussed. Advised to follow up with PCP, next available appointment Departure - Departure Disposition: Home, Self Care Clinical Impression: Near syncope, Weakness Condition: Good Instructions: ED Near Syncope Unkn, ED Weakness UKO Comments: There were no concerning nor diagnostic findings on tonight's tests. As we discussed, there was narrowing of both of your carotid arteries on the CT scan of your neck. The narrowing is not to an extent that would explain your symptoms nor require further immediate testing. The narrowing is an incidental finding. Otherwise, the CT scans had no concerning findings. Your EKG and chest x-ray were also unremarkable. The cause of your symptoms is not apparent at this time. Contact your primary care provider to arrange for next available follow-up appointment for reevaluation. Forms: PCP List Discharge Date/Time: 06/09/23 01:45
[2023-06-08 21:21] LABS: BASOPHILS % (AUTO) 0.5 %; EOSINOPHILS # (AUTO) 0.2 10^3/uL (0.0-0.7); EOSINOPHILS % (AUTO) 3.4 %; HCT - HEMATOCRIT 36.8 % (37.0-47.0); HGB - HEMOGLOBIN 12.9 g/dL (12.0-16.0); LYMPHOCYTES % (AUTO) 35.1 %; MEAN CORPUSCULAR HEMOGLOBIN 34.4 pg (27.0-31.0); MEAN CORPUSCULAR HGB CONC 35.1 g/dL (32.0-36.0); MEAN CORPUSCULAR VOLUME 98.1 fL (81.0-99.0); MONOCYTES # (AUTO) 0.4 10^3/uL (0.0-1.0); MONOCYTES % (AUTO) 7.3 %; NEUTROPHILS % (AUTO) 53.5 %; PLT - PLATELET COUNT 122 10^3/uL (130-450); RED BLOOD COUNT 3.75 10^6/uL (4.20-5.40); RED CELL DISTRIBUTION WIDTH 13.7 % (12.0-15.0); WHITE BLOOD COUNT 5.6 x10^3/uL (4.8-10.8)
[2023-06-08 21:32] LABS: ALBUMIN 4.1 g/dL (3.2-5.5)
[2023-06-08 21:38] LABS: TROPONIN I HIGH SENSITIVITY 8.1 ng/L (2.3-14.8)
[2023-06-08 21:49] LABS: ALBUMIN/GLOBULIN RATIO 2.1 (1.0-2.2); BILIRUBIN,TOTAL 0.3 mg/dL (0.2-1.0); CALCIUM 9.2 mg/dL (8.5-10.3); CREATININE 0.9 mg/dL (0.6-1.3); POTASSIUM 4.1 mmol/L (3.5-4.5); TOTAL PROTEIN 6.1 g/dL (6.4-8.9)
--- NOTE | 2023-06-08 22:14 | XRAY Report ---
PROCEDURE: Chest 2 View X-Ray INDICATIONS: near-syncope TECHNIQUE: 2 views of the chest were acquired. COMPARISON: Chest x-ray 03/31/2022 FINDINGS: Surgical changes and devices: None. Lungs and pleura: No pleural effusions or pneumothorax. Lungs are hyperexpanded. Surgical changes re flecting left upper lobe lobectomy. Mediastinum: Mediastinal contours appear normal. Heart size is minimally prominent. Bones and chest wall: No suspicious bony lesions. Overlying soft tissues appear unremarkable. IMPRESSION: No acute cardiopulmonary process. Reviewed by: Kelsie Lazo MD on 06/08/2023 10:13 PM [facility] Approved by: Kelsie Lazo MD on 06/08/2023 10:13 PM [facility] Station ID: [id number]
[2023-06-08] MEDS ORDERED: iohexoL-300 100 ML VIAL IVP ONE (23:38)
--- NOTE | 2023-06-08 23:55 | CT Report ---
PROCEDURE: CT Angio Head/Neck INDICATIONS: RLE weakness (resolved), near syncope TECHNIQUE: After the administration of intravenous contrast, 1 mm thick sections acquired from the aortic arch t hrough the [place] of [place]. 3-dimensional agpyuuc-fqcpbhsas-ibueqpslle (MIP) and/or volume renderin g reformats were acquired of the central intracranial vasculature and neck separately. For radiation dose reduction, the following was used: automated exposure control, adjustment of mA and/or kV acco rding to patient size. COMPARISON: MRI brain 04/21/2022 FINDINGS: Image quality: Diagnostic. HEAD CT: The ventricular system and cortical sulci demonstrate atrophy, consistent for patient's stated age. There are areas of hypodensity in the periventricular and subcortical white matter. There is no acut e intra or extra-axial fluid collection. No acute hemorrhage, mass lesion or midline shift. Brainst em is unremarkable. Globes are symmetrical. Sinuses are aerated. Osseous structures are intact. HEAD CT ANGIOGRAPHY: Anterior circulation: Intracranial internal carotid arteries are normal in size and flow. The flow within the paired anterior cerebral arteries is normal and symmetric. The flow within the middle cer ebral arteries is normal and symmetric. The anterior communicating artery is seen. No aneurysms are seen. Posterior circulation: Left vertebral artery dominance. Visualized portions of the vertebral arterie s demonstrate normal caliber, and join to form a normal appearing basilar artery. Flow within the po sterior cerebral arteries is normal and symmetric. No aneurysms are seen. NECK CT ANGIOGRAPHY: Carotid system: The great vessels demonstrate a conventional anatomy as they arise from the aortic a rch. The origins of the common carotid arteries appear patent. The common carotid arteries demonstr ate normal caliber and courses. The bifurcation regions are both widely patent. There are 2 focal ar eas of short segment stenosis within the proximal left internal carotid artery each measuring approxi mately 50%. Focal area of stenosis is present approximately 1.3 cm from the bifurcation measuring 50% on the right. Posterior circulation: The origins of the vertebral arteries both appear widely patent. The more albrecht perior extracranial portions of both vertebral arteries also demonstrate normal courses and calibers. They join to form a normal appearing basilar artery. Soft tissues: Visualized neck soft tissues demonstrate no suspicious abnormalities. Bones: No suspicious bony lesions. Visualized cervical spine appears normally aligned. IMPRESSION: 1. No acute intracranial process. 2. Moderate atrophy and chronic microvascular ischemic changes. 3. No areas of hemodynamically significant stenosis, vascular occlusion or aneurysmal dilation within the anterior circulation. 4. No areas of hemodynamically significant stenosis, vascular occlusion or aneurysmal dilation within the posterior circulation. 5. 50% stenosis within the internal carotid arteries bilaterally as above. The estimate of stenosis included in the report of the imaging study was calculated using the NASCET method Reviewed by: Kelsie Lazo MD on 06/08/2023 11:53 PM PST Approved by: Kelsie Lazo MD on 06/08/2023 11:53 PM PST Station ID: [id number]
[2023-06-09 00:15] VITALS: BP 154/88; O2SAT 94
== END 2023-06-09 01:45 | disposition home or self-care (01) ==
LOC: EDUNIT# → ED 19:54
DX: R55 Syncope and collapse (principal); R53.1 Weakness; F17.200 Nicotine dependence, unspecified, uncomplicated
CPT/HCPCS: 36415; 70496; 70498; 71046; 80053; 83690; 84484; 85025; 93005; 99283; 99284; Q9967